=== PATIENT | male | born 1955 | race Caucasian/White ===

== ENCOUNTER 2016-12-19 13:30 | Outpatient (CLI) | payer OTHER ==
--- NOTE | 2016-12-19 16:07 | DIAGNOSTIC IMAGING REPORT ---
PROCEDURE: MRA HEAD WITHOUT CONTRAST INDICATION: CHRONIC HEADACHES TECHNIQUE: Multiplanar multisequence MRI imaging of the brain without contrast. COMPARISON: MRI of the brain dated 10/29/2013 FINDINGS: The anterior middle and posterior cerebral arteries are normal. The distal carotids and distal basilar artery normal there is no evidence of aneurysm vascular malformation formation traversed and the vascularity. No evidence of vasculitis or vasospasm. IMPRESSION: 1. Normal MRA of the brain.
--- NOTE | 2016-12-19 16:13 | DIAGNOSTIC IMAGING REPORT ---
PROCEDURE: MR BRAIN W/WO CONTRAST INDICATION: CHRONIC HEADACHES TECHNIQUE: Multiplanar multisequence MRI imaging of the brain without contrast. Post administration of 15 ml ProHance gadolinium based IV contrast, three plane T1 fat sat sequences were obtained. COMPARISON: Brain MRI of 10/29/2013 FINDINGS: The midline structures are normally formed. The ventricular system is normal in size. Basal cisterns are patent. Flow voids in the major intracranial vessels are normal. No vascular malformations seen post contrast. Signal throughout the thibodeaux and white matter is normal. No restricted diffusion to suggest acute ischemia. No evidence of acute or chronic intraparenchymal or extra-axial hemorrhage. No mass, mass effect, or midline shift. No suspicious enhancement. Normal signal in the visible bones. The sinuses are normally aerated. Visible extracranial soft tissues including the orbits are normal. IMPRESSION: 1. Normal MRI of the brain. 2. No abnormal enhancement.
== END 2016-12-19 23:00 ==
LOC: MRI SRH 13:30
DX: R51 Headache (principal)